=== PATIENT | male | born 1960 | race Caucasian/White ===

== ENCOUNTER 2016-08-16 23:20 | Emergency (ER) | payer OTHER ==
[~2016-08-16] VITALS: Ht 175.3 cm; Wt 103.7 kg
[~2016-08-16 23:20] MED LIST: ADVIL200 MG PO; CLEOCIN150 MG PO; NORCO 5/3251 TABLET PO
[2016-08-16] MEDS ORDERED: CLEOCIN300 MG PO (23:55)
[2016-08-17 00:20] VITALS: BP 158/91
== END 2016-08-17 00:21 | disposition home or self-care (01) ==
LOC: EME 23:20
DX: L03.115 Cellulitis of right lower limb (principal)
CPT/HCPCS: 99281; 99284

== ENCOUNTER 2017-02-16 00:06 | Emergency (ER) | payer OTHER ==
[~2017-02-16] VITALS: Ht 177.8 cm; Wt 105.5 kg
[~2017-02-16 00:06] MED LIST changes: +CLEOCIN300 MG PO
[2017-02-16] MEDS ORDERED: ERYTHROMYC1 APPLICAT BOTH EYES (00:43)
[2017-02-16 01:22] VITALS: BP 163/91
== END 2017-02-16 01:23 | disposition home or self-care (01) ==
LOC: EME 00:06
DX: S05.01XA Injury of conjunctiva and corneal abrasion without foreign body, right eye, initial encounter (principal); Z88.5 Allergy status to narcotic agent